=== PATIENT | female | born 1985 | race Caucasian/White ===

== ENCOUNTER 2019-10-12 00:24 | Emergency (ER) | payer OTHER ==
--- NOTE | 2019-10-12 00:29 | PDOC ---
History of Present Illness - General Chief Complaint: Psychiatric Stated Complaint: PANIC ATTACK Time Seen by Provider: 10/12/19 00:29 History Source: Patient - History of Present Illness Initial Comments: 10/12/19 01:13 pt presents to the ED complaining of panic attacks that started three days ago and have been persistent since then. Patient has a history of generalized anxiety disorder and panic disorder and states that her current symptoms are similar to her panic attacks. PAtient has not had a panic attack for years. She is currently taking buspar and lexapro without relief. She was seen in urgent care today for the same complaints, and d dimer and cbc were normal. 10/12/19 01:13 10/12/19 01:18 Past History - Past Medical History Allergies/Adverse Reactions: Allergies Allergy/AdvReac Type Severity Reaction Status Date / Time codeine Allergy Unknown Verified 10/12/19 00:44 Sulfa (Sulfonamide Allergy Unknown Verified 10/12/19 00:44 Antibiotics) Home Medications: Ambulatory Orders Venlafaxine HCl ER [Effexor Xr -] 75 mg PO DAILY 10/12/19 *Physical Exam - Physical Exam 10/12/19 01:20 gen: alert, NAD HEENT: normocephalic, atraumatic CV: rrr no m/r/g pulm: cta b/l abdomen: soft, non tender, non distended without guarding or rebound. Medical Decision Making - Medical Decision Making 10/12/19 01:21 pt presents to the ED complaining of anxiety, without physical complaints. Feels greatly improved with xanax in the ED. HR improved after treatment with xanax. Patient advised to follow up with [facility] crisis prevention team in the AM for psychiatric referral, and to return to the ED for worsening symptoms. Discharge - Discharge Information Problems reviewed: Yes Clinical Impression/Diagnosis: Anxiety Condition: Good Disposition: HOME - Admission No - Additional Discharge Information Prescription Drug Monitoring Program (I-STOP) results: I-STOP not reviewed - Follow up/Referral - Patient Discharge Instructions Patient Printed Discharge Instructions: DI for Panic Disorder Additional Instructions: return to the ED for severe chest pain or shortness of breath, passing out, severe anxiety, thoughts of hurting yourself or someone else, other new or worsening symptoms. Call [facility] in the morning for psychiatric referral. Return to the ED if your symptoms worsen or if you are unable to get help. - Post Discharge Activity
[2019-10-12] MEDS ORDERED: ALPRAZolam 1 MG TABLET PO PRN (00:48)
[2019-10-12 00:50] VITALS: BP 144/93; TEMP 98.5; BMI 78.2
[2019-10-12] MEDS ORDERED: ALPRAZolam 0.25 MG TABLET ONE (00:52)
[2019-10-12 01:14] VITALS: PULSE 105
== END 2019-10-12 01:19 | disposition home or self-care (01) ==
LOC: EDBD → FER 00:24
DX: F41.0 Panic disorder [episodic paroxysmal anxiety] (principal); Z88.2 Allergy status to sulfonamides; Z88.5 Allergy status to narcotic agent
CPT/HCPCS: 99282-25